=== PATIENT | female | born 1975 | race Caucasian/White ===

== ENCOUNTER 2017-04-22 09:10 | Emergency (ER) | payer BC ==
[2017-04-22 10:46] VITALS: BP 140/88
--- NOTE | 2017-04-22 11:41 | UC ---
Throat Pain/Nasal Rupert HPI - HPI Summary HPI Summary: sore throat, cough, fever and body aches for the past 2 days. - History of Current Complaint Chief Complaint: UCRespiratory Stated Complaint: ST, COUGH Time Seen by Provider: 04/22/17 10:51 Hx Obtained From: Patient Hx Last Menstrual Period: 04/18/17 ?: No Onset/Duration: Sudden Onset, Lasting Days Severity: Moderate Associated Signs & Symptoms: Positive: Dysphagia, Nasal Discharge, Fever - Allergies/Home Medications Allergies/Adverse Reactions: Allergies Allergy/AdvReac Type Severity Reaction Status Date / Time No Known Allergies Allergy Verified 04/22/17 10:37 Home Medications: Home Medications Levothyroxine TAB* [Synthroid TAB*] 125 mcg PO DAILY 04/22/17 [History Confirmed 04/22/17] Lisinopril & Hydrochlorothiazi [Zestoretic 20-25 mg-] 1 tab PO DAILY 04/22/17 [ History Confirmed 04/22/17] Lovastatin (NF) [Mevacor (NF)] 10 mg PO DAILY 04/22/17 [History Confirmed ] Naproxen [Naproxen 500 mg] 500 mg PO BID 04/22/17 [History Confirmed 04/22/17] Potassium Chlor TAB* [Klor Con ER TAB*] 10 meq PO DAILY 04/22/17 [History Confirmed 04/22/17] Ranitidine HCl 150 mg PO BID 04/22/17 [History Confirmed 04/22/17] metFORMIN* [Glucophage 500 MG TAB *] 1,000 mg PO BID 04/22/17 [History Confirmed 04/22/17] PMH/Surg Hx/FS Hx/Imm Hx Previously Healthy: Yes - Surgical History Surgical History: None - Family History Known Family History: Positive: Hypertension - Social History Alcohol Use: None Substance Use Type: None Smoking Status (MU): Never Smoked Tobacco - Immunization History Most Recent Influenza Vaccination: 2017 Review of Systems Constitutional: Fever, Chills, Fatigue Skin: Negative Eyes: Negative ENT: Sore Throat, Ear Ache, Nasal Discharge Respiratory: Cough Cardiovascular: Negative Gastrointestinal: Negative Genitourinary: Negative Motor: Negative Neurovascular: Negative Musculoskeletal: Arthralgia, Myalgia Neurological: Headache Psychological: Negative Is Patient Immunocompromised?: No All Other Systems Reviewed And Are Negative: Yes Physical Exam Triage Information Reviewed: Yes Appearance: Well-Nourished, Ill-Appearing, Pain Distress Vital Signs: Initial Vital Signs Temp 100 F 04/22/17 10:42 Pulse 119 04/22/17 10:42 Resp 20 04/22/17 10:42 BP 140/88 04/22/17 10:42 Pulse Ox 100 04/22/17 10:42 Vital Signs Reviewed: Yes Eye Exam: Normal ENT: Positive: Pharyngeal erythema, Nasal congestion Dental Exam: Normal Neck exam: Normal Neck: Positive: Supple, Nontender, No Lymphadenopathy Respiratory Exam: Normal Respiratory: Positive: Chest non-tender, Lungs clear, Normal breath sounds Cardiovascular Exam: Normal Cardiovascular: Positive: No Murmur, Pulses Normal, Tachycardia Abdominal Exam: Normal Abdomen Description: Positive: Nontender, No Organomegaly, Soft Bowel Sounds: Positive: Present Musculoskeletal Exam: Normal Musculoskeletal: Positive: Strength Intact, ROM Intact, No Edema Neurological Exam: Normal Neurological: Positive: Alert, Muscle Tone Normal Psychological Exam: Normal Skin Exam: Normal Throat Pain/Nasal Course/Dx - Course Course Of Treatment: hx obtained, exam performed ,meds reviewed, treated for flu - Differential Dx/Diagnosis Differential Diagnosis/HQI/PQRI: Influenza, Otitis Media, Pharyngitis, Sinusitis Provider Diagnoses: influenza A Discharge - Discharge Plan Condition: Stable Disposition: HOME Prescriptions: Guaifenesin-Codeine [Cheratussin AC 100-10 mg/5Ml] 10 ml PO BID #100 ml MDD 20 ml Oseltamivir CAP* [Tamiflu CAP*] 75 mg PO BID #10 cap Patient Education Materials: Influenza (ED) Forms: *Work Release Referrals: No Primary Care Phys,NOPCP [Primary Care Provider] - Additional Instructions: 1. get plenty of rest, increase fluid intake 2. Follow up with any increase in symptoms or respiratory distress.
== END 2017-04-22 11:52 | disposition home or self-care (01) ==
LOC: UCCORT 09:10
DX: J09.X2 Influenza due to identified novel influenza A virus with other respiratory manifestations (principal); Z79.84 Long term (current) use of oral hypoglycemic drugs
CPT/HCPCS: 87480; 87502; 87510; 87651; 87660; 87661; 99212; G0463